=== PATIENT | female | born 2000 | race Caucasian/White ===

== ENCOUNTER → 2021-12-16 | Outpatient (CLI) | payer OTHER ==
--- NOTE | 2021-12-16 11:15 | RAD ---
AP, lateral and oblique views of the right ankle. No comparison is available. Indication: Pain and swelling after fall No fracture, subluxation or dislocation is seen. The ankle mortise is intact. There is lateral soft t issue swelling seen over the lateral malleolus. Cannot exclude ligamentous injury. Impression: Soft tissue swelling laterally, cannot exclude ligamentous injury. Electronically signed by: Elias Tapia MD (12/16/2021 11:12 AM) [id number]
== END ==
LOC: PMG 10:45
PROVIDERS: ATTEND Physician Assistant
DX: M79.89 Other specified soft tissue disorders (principal); M25.571 Pain in right ankle and joints of right foot
CPT/HCPCS: 73610